=== PATIENT | female | born 1980 ===

== ENCOUNTER 2016-09-29 16:52 | Inpatient (IN) | payer BC ==
[2016-09-29 17:57] VITALS: BMI 28.6
[2016-09-29] MEDS: Lactated Ringer's 1,000 ML IV SCH ×2 (18:27→19:30)
[2016-09-29 18:29] VITALS: BP 149/88; PULSE 91; RESP 18; TEMP 97.9; O2SAT 100
[2016-09-29 18:43] LABS: BASO % 0.2 % (0.0-2.0); HEMATOCRIT 36.1 % (34.0-47.0); LYMPH % 8.4 % (20.0-40.0); MEAN CELL VOLUME 75.3 fl (81.0-99.0); MEAN CORPUSCULAR HEMOGLOBIN 23.9 pg (27.0-31.0); MEAN CORPUSCULAR HGB CONC 31.7 g/dL (33.0-37.0); MEAN PLATELET VOLUME 9.4 fl (7.2-11.7); MONO # 0.6 K/uL (0.0-0.8); MONO % 5.3 % (0.0-10.0); NEUT # 10.4 K/uL (1.8-7.0); NEUT % 86.1 % (50.0-75.0); PLATELET COUNT 223 K/uL (130-400); RED CELL DISTRIBUTION WIDTH 20.1 % (11.5-14.5); WHITE BLOOD COUNT 12.1 K/uL (4.8-10.8)
[2016-09-29] MEDS ORDERED: Lidocaine 1% Inj (20ml) ONE (18:46)
--- NOTE | 2016-09-29 18:51 | OBADHP ---
Datetime: 09/29/2016 18:45 Admit Comment, IP Provider: 5-year-old at 39 weeks and 5 days gestational age presented to the ED complaining of contractions. Patient denies any vaginal bleeding or leakage of fluids. Patient re ports good movement. Otherwise, patient without complaints. records reviewed. care unremarkable except mild anemia and lateral uterine fibroid. GBS negative. Past medical history none Past surgical history none Medications vitamins, oral iron supplementation No known drug allergies Obstetrical history Social history no tobacco, no drugs, no alcohol Physical exam: Referred to physical exam findings Assessment: 35-year-old at 39 weeks 5 days gestational age in active labor, GBS negative. Both maternal well-being and well-being reassuring at this time. Plan: Admit patient to labor and delivery for management of labor and delivery. Pelvic Type - PN: Adequate Extremities - PN: Normal Abdomen - PN: Normal Back - PN: Normal Breast - PN: Normal Lungs - PN: Normal Heart - PN: Normal Thyroid - PN: Normal Neurologic - PN: Normal HEENT - PN: Normal General - PN: Normal FHR - Baseline A Provider: 130s-140s Membranes, Provider: Intact Contraction Comments Provider: q4-5min Pool Provider: Negative IP Hx Assessment: The History has been Reviewed and is Current Vital Signs Provider: Reviewed; Within Normal Limits IP Chief Complaint: Uterine contractions NICHD Variability Prov Fetus A: Moderate 6-25bpm NICHD Decel Fetus A IP Provider: Variable Dilatation, Provider: 7 Effacement, Provider: 90 Station, Provider: -1 Genitourinary Exam: Normal DTRs - PN: Normal EGA AdmitDate IP: 39.5 IP Adm Impression: Term, intrauterine ; Active labor; Intact Membranes IP Admit Plan: Admit to unit; Initiate labor protocol
[2016-09-29 18:55] LABS: ALB/GLOB RATIO 1.1 (1.0-2.1); ALKALINE PHOSPHATASE 228 U/L (38-126); ALT/SGPT 40 U/L (9-52); AST/SGOT 35 U/L (14-36); BILIRUBIN,TOTAL 0.5 mg/dl (0.2-1.3); BLOOD UREA NITROGEN 6 mg/dl (7-17); CALCIUM 9.3 mg/dL (8.4-10.2); CARBON DIOXIDE 20 mmol/L (22-30); CHLORIDE 102 mmol/L (98-107); GFR AFRICAN-AMERICAN > 60; GLUCOSE,RANDOM 91 mg/dL (65-105); POTASSIUM 4.4 MMOL/L (3.6-5.0); SODIUM 131 mmol/l (132-148); TOTAL PROTEIN 7.2 G/DL (6.3-8.2)
[2016-09-29 19:25] LABS: NEUTROPHIL 88 % (42-75); TOTAL CELLS COUNTED 100
[2016-09-29 19:26] LABS: LARGE PLATELETS PRESENT
--- NOTE | 2016-09-29 20:18 | OBPN ---
Datetime: 09/29/2016 20:13 IP Progress Impression: Reassuring heart rate IP Procedures: Sterile Vag Exam IP Progress Plan: Continue present management FHR - Baseline A Provider: 140s IP Progress Note Comment: Continue current management. Both MWB/FWB reassuring at this time. Vital Signs Provider: Reviewed; Within Normal Limits NICHD Accel Fetus A IP Provider: 15X15 FHR Category Provider Fetus A: Category I NICHD Variability Prov Fetus A: Moderate 6-25bpm Dilatation, Provider: 9 Effacement, Provider: 100 Station, Provider: 0 NICHD Decel Fetus A IP Provider: None Datetime: 09/29/2016 18:45 Pool Provider: Negative Membranes, Provider: Intact Contraction Comments Provider: q4-5min
[2016-09-29] MEDS ORDERED: Fentanyl/Bupivacaine HCl 250 ML EPI ONE (20:57)
[2016-09-29] MEDS ORDERED: Lactated Ringer's 1,000 ML IV SCH ×2 (21:40→22:45)
[2016-09-30] MEDS ORDERED: Oxytocin 30 units/LR 500ML 500 ML IV ONE (01:10)
[2016-09-30] MEDS ORDERED: Oxytocin 30 units/LR 500ML 500 ML IV SCH (01:15)
[2016-09-30] MEDS ORDERED: Oxycodone/Acetaminophen 5/325 mg Tab PO PRN ×2 (03:49)
[2016-09-30] MEDS ORDERED: Ampicillin 2 GM in Sodium Chloride 0.9% 100 ML IVPB ONE (03:51)
[2016-09-30] MEDS ORDERED: Gentamicin 80mg/50ml NS 50 ML IVPB ONE (03:53)
--- NOTE | 2016-09-30 04:13 | OBDS ---
DELIVERY PERSONNEL Delivery Doctor: Anthony Sheriff MD Design Leader: Danielle Lund RN/KARINA Raygoza Anesthesiologist: Bette MATERNAL INFORMATION Delivery Anesthesia: Local; Epidural Medications in Delivery: Pitocin 30 units in 500 mL Estimated Blood Loss (ml): 400 Placenta Cultured: No Maternal Complications: None Provider Comments: Normal spontaneous vaginal delivery. Patient delivered viable female with Apgars of 9 and 9 at one and 5 minutes respectively. I nfant delivered via SANTOSH position. Loose nuchal cord 1 reduced. Placenta removed manually due to aristides dvertent core transection. Laceration repaired, as above. Uterus firm and appropriately hemostatic fo llowing delivery. No complications. Patient tolerated delivery and repair well. EBL 400 mL LABOR SUMMARY EDC: 10/01/2016 00:00 No. Babies in Womb: 0 Attempted: No Labor Anesthesia: Epidural LABOR INFORMATION Reason for Induction: Not Applicable Complete Dilatation: 09/29/2016 22:04 Oxytocin: Augmentation Group B Beta Strep: Negative Steroids Given: None Reason Steroids Not Administered: Not Applicable MEMBRANES Membranes Rupture Method: Artificial Rupture of Membranes: 09/29/2016 22:04 Length of Rupture (hrs): 5.00 Amniotic Fluid Color: Clear Amniotic Fluid Amount: Moderate Amniotic Fluid Odor: Normal STAGES OF LABOR Stage 2 hrs: 5 Stage 2 min: 0 VAGINAL DELIVERY Episiotomy: None Laceration Extension: Second Degree Laceration Type: Vaginal Laceration Repair: Yes Laceration Repair Note: Second-degree midline perineal laceration. Area infiltrated with 1% lidocain e. Laceration repaired with 2. 0 Rapide without complication. Patient tolerated repair well. Initial Vag Sponge Count: 25 Final Vag Sponge Count: 25 Initial Vag Sharps Count: 4 Final Vag Sharps Count: 4 Sponge Count Correct: Yes Sharps Count Correct: Yes BABY A INFORMATION Infant Delivery Date/Time: 09/30/2016 03:04 Method of Delivery: Vaginal Born in Route : No : N/A Forceps: N/A Vacuum Extraction: N/A Shoulder Dystocia : No SHOULDER DYSTOCIA BABY A Delivery Date/Time: 09/30/2016 03:04 PRESENTATION/POSITION BABY A Presentation: Cephalic Cephalic Presentation: Vertex INFANT INFORMATION BABY A Gestational Age at Delivery: 39.6 Gestational Status: Term Infant Outcome : Liveborn Infant Condition : Stable Infant Sex: Female IDENTIFICATION/MEDS BABY A ID Band Location: Left Leg; Left Arm WEIGHT/LENGTH BABY A Infant Birthweight (gms): 3280 Weight (lb): 7 Weight (oz): 4 CORD INFORMATION BABY A No. Cord Vessels: 3 Cord Blood Taken: Yes Suction: None; Mouth
[2016-09-30] MEDS: Benzocaine/Menthol SPRAY TOP PRN (08:06)
[2016-09-30] MEDS: Multivitamin With Minerals Tab PO SCH (08:07)
--- NOTE | 2016-10-01 07:44 | OBPPN ---
Datetime: 10/01/2016 07:37 PP Pain Prov: Within normal limits PP Nausea Prov: Denies PP Flatus Prov: Yes PP Breasts Prov: Not Done PP Heart Prov: Normal PP Lungs Prov: Normal PP Abdomen/Uterus Prov: Normal PP Lochia Prov: Not Done PP Vulva/Perineum Prov: Not Done PP CVA Tenderness Prov: Normal PP Extremities Prov: Normal PP Progress Prov: Normal PP Impression Prov: Normal progression PP Plan Prov: Continue present management PP Progress Note Prov: doing well vss uterus firm PPD 1 oobtc regular diet motrin as needed plan for d/c in am Vital Signs Provider PP: Reviewed
[2016-10-01 08:01] LABS: BASO % 0.3 % (0.0-2.0); EOS % 0.1 % (0.0-4.0); HEMATOCRIT 29.3 % (34.0-47.0); LYMPH # 2.3 K/uL (1.0-4.3); LYMPH % 14.1 % (20.0-40.0); MEAN CELL VOLUME 75.6 fl (81.0-99.0); MEAN CORPUSCULAR HEMOGLOBIN 23.5 pg (27.0-31.0); MEAN CORPUSCULAR HGB CONC 31.1 g/dL (33.0-37.0); MEAN PLATELET VOLUME 8.9 fl (7.2-11.7); MONO # 1.2 K/uL (0.0-0.8); MONO % 7.1 % (0.0-10.0); NEUT % 78.4 % (50.0-75.0); RED CELL DISTRIBUTION WIDTH 20.2 % (11.5-14.5); WHITE BLOOD COUNT 16.6 K/uL (4.8-10.8)
[2016-10-01] MEDS: Multivitamin With Minerals Tab PO SCH (08:14)
[2016-10-01] MEDS: Benzocaine/Menthol SPRAY TOP PRN (08:15)
[2016-10-02] MEDS: Multivitamin With Minerals Tab PO SCH (09:38)
--- NOTE | 2016-10-02 12:06 | OBDCSUM ---
Datetime: 10/02/2016 12:05 Discharged to, Provider: Home Follow up at, Provider: Jesusita Disch Instr Activity: Normal activity Disch Instr Diet: Regular Discharge Instructions, Provider: Routine instructions given Discharge Diagnosis, Provider: Term Delivered Follow up in weeks, Provider: 6w Disch Referrals: None Contraception discussed, Prov: Yes Disch Activity Restrictions: No sexual activity; Nothing in vagina - [place], tampons, douche
--- NOTE | 2016-10-02 12:07 | OBPPN ---
Datetime: 10/02/2016 08:30 PP Pain Prov: Within normal limits PP Nausea Prov: Denies PP Flatus Prov: Yes PP BM Prov: Yes PP Breasts Prov: Normal PP Heart Prov: Normal PP Lungs Prov: Normal PP Abdomen/Uterus Prov: Normal PP Lochia Prov: Normal PP Vulva/Perineum Prov: Normal PP CVA Tenderness Prov: Normal PP Extremities Prov: Normal PP Progress Prov: Normal PP Impression Prov: Normal progression PP Plan Prov: Discharge PP Progress Note Prov: A: S/P day 2 Discharge home follow up in 6w Vital Signs Provider PP: Reviewed
== END 2016-10-02 18:00 | disposition home or self-care (01) | DRG 775 ==
LOC: H.EROB2 16:52 → H.L&D 18:16 → H.OB/GYN 09-30 06:00
PROVIDERS: ADMIT Obstetrics & Gynecology; ATTEND Obstetrics & Gynecology
PROC: 10907ZC Drainage of Amniotic Fluid, Therapeutic from Products of Conception, Via Natural or Artificial Opening (ICD-10-PCS; 2016-09-29)
PROC: 4A1HXCZ Monitoring of Products of Conception, Cardiac Rate, External Approach (ICD-10-PCS; 2016-09-29)
PROC: 10E0XZZ Delivery of Products of Conception, External Approach (ICD-10-PCS; principal; 2016-09-30)
PROC: 0KQM0ZZ Repair Perineum Muscle, Open Approach (ICD-10-PCS; 2016-09-30)
DX: O34.13 Maternal care for benign tumor of corpus uteri, third trimester (principal); D25.9 Leiomyoma of uterus, unspecified; O70.1 Second degree perineal laceration during delivery; O69.81X0 Labor and delivery complicated by cord around neck, without compression, not applicable or unspecified; Z37.0 Single live birth; Z3A.39 39 weeks gestation of pregnancy